=== PATIENT | male | born 1980 | race Caucasian/White ===

== ENCOUNTER 2019-08-31 07:57 | Emergency (ER) | payer OTHER, SELFPAY ==
--- NOTE | ~2019-08-31 | XR_ITS ---
EXAMINATION: XR chest 1V portable DATE: 08/31/2019 09:15 INDICATION: Dyspnea. Hypoxia. Shortness of breath. TECHNIQUE: frontal view of the chest was obtained. COMPARISON: None FINDINGS: Band of increased opacity projecting across the right midlung zone with indistinct margins except whe re it abuts the right minor fissure suggesting pneumonia in the right upper lobe. Remainder of the mariaelena ngs are clear. No pulmonary edema, pleural effusion or pneumothorax. The cardiomediastinal silhouette is normal. Mild thoracic spondylosis. IMPRESSION: 1. Focal airspace opacity in the right midlung zone concerning for right upper lobe pneumonia versus less likely atelectasis. Reviewed, dictated and finalized at location A.
[2019-08-31 08:00] VITALS: BP 102/68; PULSE 75; RESP 18; TEMP 36.7; O2SAT 100
--- NOTE | 2019-08-31 08:09 | ED.SOB ---
HPI - SOB/Dyspnea General Chief Complaint: Shortness of Breath/Dyspnea Stated Complaint: sob Time Seen by Provider: 08/31/19 08:09 Source: patient Mode of arrival: ambulatory Limitations: no limitations History of Present Illness HPI Narrative: A 39 y/o male, with a PMHx of asthma, presents to the ED with c/o SOB for 3 days, feeling unwell for past ten days. Pt has used his inhaler with no relief. Pt notes that he has not experienced SOB like this before in the past. Pt is a smoker but notes that he has not had a cigarette within the last 3 days. He reports a cough, body aches, wheeze, a subjective fever, rhinorrhea, and marijuana use, but denies a sore throat, recent travel, sick contacts, and alcohol use. Pertinent past history: asthma Onset (ago): day(s) (3) Known history of: asthma Related Data Home Medications Medication Instructions Recorded Confirmed albuterol sulfate 2.5 mg INHALATION Q4H PRN 08/31/19 epinephrine [Primatene Mist] INHALATION 08/31/19 Allergies Allergy/AdvReac Type Severity Reaction Status Date / Time No Known Allergies Allergy Unknown Verified 08/31/19 08:03 Review of Systems Review of Systems: Narrative: CONSTITUTIONAL: Reports: body aches, subjective fever ENT: Reports: rhinorrhea; Denies congestion, sore throat, or otalgia. RESPIRATORY: Reports: cough, SOB, wheeze. GI: Denies diarrhea MSK: Reports myalgias NEURO: Denies numbness SKIN: Denies rash All systems reviewed & are unremarkable except as noted in HPI and below PMFSH Past Medical History Medical History (Updated 08/31/19 @ 10:26 by Lara Monroy MD) Asthma Social History Social History (Updated 08/31/19 @ 08:24 by Alicia Winkler) Smoking packs per day: 0.5 Smoking cigarettes per day: 10.0 Smoking status: Current every day smoker Alcohol intake: never Substance use: current Substance use type: marijuana Comments PCP: Dr. Brown Exam Narrative: Exam Narrative: GENERAL: Awake, alert, conversant HEAD: Normocephalic, atraumatic. NECK: Full range of motion CHEST: Mild to moderate respiratory distress, use of accessory muscles to breathe, coarse breath sounds, no audible wheeze, speaking in full sentences, no tachypnea HEART: Regular rate EXTREMITIES: Normal range of motion. No edema. SKIN: Warm, dry, no rash. NEURO: No focal deficits. Alert and oriented x3. Course Course Emergency Course: Patient presented for evaluation of cough and shortness of breath. At the time of initial assessment, ABCs are intact, patient is in mild to moderate respiratory distress with tachypnea, coarse breath sounds, audible expiratory wheezing with coarse breath sounds greater on the right. Patient is afebrile, no tachycardia. Patient does have a history of asthma. IV access obtained and labs are drawn. Blood cultures were obtained and lactic acid is not elevated. Patient has a significant leukocytosis. No severe lymphopenia. No acute kidney injury or severe electrolyte derangement. Patient chest x-ray with a right middle lobe pneumonia. Patient was given IM epinephrine, magnesium, steroids, as I do feel his symptoms are very consistent with an asthma exacerbation, but during pandemic/new close mid 19 infection risks, wanted to avoid nebulizing therapy. I did consider Carlos 19 infection, the patient does not have typical symptoms of this or laboratory results that would be consistent with this at this time. Pt is not hypoxic and does not meet criteria for state testing. Patient did well with this management, respiratory distress resolved, patient did not require any supplemental oxygen, and he was given his first dose of IV antibiotics in the ER. Patient was offered admission given my concern that his asthma would relapse, but patient declined, stating that he felt well. Given normal oxygenation, vital signs stable, no respiratory distress, tolerating oral intake, and passing ambulation challenge without transient oxygen desaturat
[2019-08-31 08:16] VITALS: PULSE 63; O2SAT 99
[2019-08-31 08:32] LABS: Basophils Absolute Auto 0.1 K/mm3 (0.0-0.1); Basophils Percent Auto 0.3 % (0.2-1.2); Eosinophils Absolute Auto 0.1 K/mm3 (0-0.3); Eosinophils Percent Auto 0.2 % (0-4.4); Hematocrit 44.9 % (42.0-52.0); Hemoglobin 14.8 g/dL (14.0-18.0); Immature Granulocyte Absolute 0.23 K/mm3 (0.00-0.031); Immature Granulocyte Percent A 0.9 % (0-0.5); Lymphocytes Absolute Auto 1.59 K/mm3 (0.9-3.2); Mean Corpuscular Volume 90.9 fl (80-100); Mean Platelet Volume 9.4 fl (7.4-10.4); Monocytes Absolute Auto 2.3 K/mm3 (0.1-0.6); Monocytes Percent Auto 8.6 % (2.6-8.5); Neutrophils Absolute Auto 22.4 K/mm3 (1.3-6.7); Platelet Count Result 253 k/mm3 (150-375); Red Blood Count 4.94 M/mm3 (4.6-6.20); Red Cell Distribution Width 13.9 % (11.5-14.5); White Blood Count 26.7 K/mm3 (4.5-10.0)
[2019-08-31 08:39] LABS: INR 1.2; Prothrombin Time 15.1 Seconds (11.1-14.7)
[2019-08-31 08:40] LABS: Partial Thromboplastin Time 31.9 SECONDS (22.3-36.8)
[2019-08-31 08:41] LABS: Carboxyhemoglobin 2.1 % THb (0-2.0); Fractional Inspired Oxygen 21 %; HCO3 ABG 26.9 mEq/l (22.0-26.0); Methemoglobin ABG 0.2 %THb (0-1.5); Oxygen Content ABG 19.6 %vol (16.0-22.0); Oxygen Saturation ABG 96.1 % (95.0-100.0); Oxyhemoglobin 93.1 % THb (90.0-100.0); PCO2 ABG 35.2 mmHg (35.0-45.0); PO2 ABG 74.6 mmHg (80.0-100.0); PO2 FiO2 Ratio Arterial Blood 3.55 %; Reduced Hemoglobin 4.6 %THb (0-5.0); pH ABG 7.501 (7.350-7.450)
[2019-08-31 08:42] LABS: Device ROOM AIR; Modified Allen's Test Pass; Site Drawn RIGHT RADIAL
[2019-08-31 08:45] LABS: Alanine Aminotransferase 40 U/L (4-50); Albumin Level 4.4 g/dL (3.5-5.1); Alkaline Phosphatase 101 U/L (38-126); Aspartate Amino Transferase 31 U/L (17-59); Bilirubin,Total 0.7 mg/dL (0.2-1.3); Blood Urea Nitrogen 11 mg/dL (9-20); Carbon Dioxide 32 mmol/L (22-30); Chloride 100 mmol/L (98-107); Estimated Glomerular Filt Rate > 60; Glucose 131 mg/dL (75-110); Potassium 3.9 mmol/L (3.4-5.0); Sodium 134 mmol/L (137-145)
[2019-08-31 08:51] LABS: Lactate Dehydrogenase 343 U/L (313-618)
[2019-08-31 08:55] LABS: Troponin I < 0.012 ng/mL (0.000-0.034)
[2019-08-31] MEDS: EPINEPHrine HCL INJ 1 MG/ML AMPUL 0.3 MG IM (08:56)
[2019-08-31] MEDS: methylPREDNISolone SOD SUCC 125 MG VIAL IV PUSH (08:56)
[2019-08-31] MEDS: SODIUM CHLORIDE 0.9% IV 1,000 ML 999 ML IV CONT (08:58)
[2019-08-31 09:08] LABS: CRP 23.7 mg/dL (<1.0)
[2019-08-31 09:18] VITALS: BP 119/87; PULSE 72; RESP 19; O2SAT 97
[2019-08-31] MEDS: MAGNESIUM SULF 2 GM/WATER 50ML 2 GM/50 ML BAG IVPB (09:20)
[2019-08-31 09:49] LABS: Lactic Acid Reflex 0.9 mmol/L (0.7-2.1)
[2019-08-31 10:30] VITALS: BP 121/68; PULSE 80; RESP 20; TEMP 36.6; O2SAT 100
--- NOTE | 2019-08-31 10:33 | PC.NURSE ---
Pt ambulated in room on pulse oximetry. 02 saturation remained 99-100%. Pt feels slightly SOB but otherwise okay. Pt states he feels well enough to manage symptoms at home.
--- NOTE | 2019-08-31 10:48 | ECG_ITS ---
Measurements Intervals [place] Rate: 68 P: 77 [place]: 152 QRS: 76 QRSD: 106 T: 69 QT: 350 QTc: 373 Interpretive Statements SINUS RHYTHM VOLTAGE CRITERIA FOR LVH BORDERLINE ECG Electronically Signed On 08-31-2019 14:48:53 CDT by Shamir Ny D.O.
[2019-09-02 16:11] LABS: Procalcitonin 0.94 ng/mL (<0.10)
== END 2019-08-31 11:25 | disposition home or self-care (01) ==
PROVIDERS: Emergency Provider Emergency Medicine
DX: J18.1 Lobar pneumonia, unspecified organism (principal); J45.21 Mild intermittent asthma with (acute) exacerbation; F17.210 Nicotine dependence, cigarettes, uncomplicated
CPT/HCPCS: 36415; 36600; 71045; 80053; 82375; 82805; 83050; 83605; 83615; 84145; 84484; 85025; 85610; 85730; 86140; 87040; 87804; 93005; 96365; 96367; 96368; 96372; 96375; 99284; J0131; J0171; J0456; J0696; J2930; J3475; J7030